=== PATIENT | male | born 1990 | race Caucasian/White ===

== ENCOUNTER 2023-05-11 18:51 | Observation (INO) | payer SELFPAY ==
[2023-05-11] VITALS (21 sets, daily range): BP systolic 121–158; BP diastolic 69–113; PULSE 93–114; RESP 17–20; TEMP 36.7; O2SAT 97–100
--- NOTE | ~2023-05-11 | CT_ITS ---
Non-contrast Head CT History: Seizure Technique: Axial non-contrast imaging of the brain was performed. Dose reduction technique was used on this scan by utilizing automated exposure control and iterative reconstruction technique. The dose -length product (DLP) was 681.00 mGy-cm. Findings: There is no evidence of intracranial hemorrhage, mass lesion, or acute infarct. Brain par enchyma appears normal. The ventricles and subarachnoid spaces are normal in size. The calvarium ap pears normal. The visualized paranasal sinuses and mastoid air cells are clear. Impression: No significant abnormality seen. Reviewed, dictated and finalized at location . ECT ADMINISTRATIVE ASSISTANT Impression: No significant abnormality seen.
--- NOTE | ~2023-05-11 | XR_ITS ---
Portable chest x-ray Comparison: None Clinical History: Seizure Findings: Lungs are clear, without focal consolidation or pleural effusion. Cardiomediastinal silho uette is unremarkable. Bones and soft tissues are unremarkable. Impression: Normal chest. Reviewed, dictated and finalized at location . TICS AND COMPOSITES INSPECTOR Impression: Normal chest.
--- NOTE | 2023-05-11 19:01 | ECG_ITS ---
Measurements Intervals [place] Rate: 97 P: 30 WV: 138 QRS: 49 QRSD: 89 T: 7 QT: 360 QTc: 457 Interpretive Statements SINUS RHYTHM NONSPECIFIC T-WAVE ABNORMALITY ABNORMAL ECG NO PREVIOUS ECG AVAILABLE FOR COMPARISON Electronically Signed On 05-12-2023 8:39:13 ENGINEER PROCESS by Dain Melchor M.D.
--- NOTE | 2023-05-11 19:30 | ED.GENADULT ---
HPI - General Adult General Chief complaint: Seizure Stated complaint: possible seizure Time Seen by Provider: 05/11/23 18:54 History of Present Illness HPI narrative: This is a 32-year-old male with history alcohol abuse presenting for possible seizure. Patient was drinking throughout the day for the [employer]. He had an episode where he became stiff and convulsed and fell to the floor. At that time his glasses cut his face. He had generalized tonic/clonic movements for about 40 seconds. He then had a post-ictal period of about 15 minutes. no history of seizures. No urinary incontinence or tongue biting. Patient is a daily drinker and has been trying to cut back. Additionally he has had a viral illness over the last 4-5 days and has not been drinking as much. Related Data Allergies Allergy/AdvReac Type Severity Reaction Status Date / Time No Known Allergies Allergy Verified 05/11/23 19:02 [facility] Past Medical History Medical History ETOH abuse Exam Narrative: APPEARANCE: No apparent distress. Head: 1 cm vertical laceration medial to the left eyebrow. superficial a cm lac below the left eye. EYES: EOMI, NOSE: Atraumatic NECK: Trachea midline RESPIRATORY: No increased rate of breathing CARDIOVASCULAR: RRR, ABDOMINAL: Non-distended MUSCULOSKELETAl: No obvious deformities NEURO: Alert. Cranial nerves 2-12 grossly intact. Sensation light touch, motor function cerebellar function intact for 4 extremities. tremulous SKIN:: Warm, dry. Normal color PSYCHIATRIC: Normal affect Course Vital Signs Vital signs: Vital Signs Temperature 98.1 F 05/11/23 18:50 Pulse Rate 105 H 05/11/23 18:50 Respiratory Rate 20 05/11/23 18:50 Blood Pressure 158/90 H 05/11/23 18:50 Pulse Oximetry 99 05/11/23 18:50 Oxygen Delivery Room Air 05/11/23 18:50 Temperature 98.1 F 05/11/23 18:50 Pulse Rate 101 H 05/11/23 20:34 Respiratory Rate 20 05/11/23 20:34 Blood Pressure 152/113 H 05/11/23 20:34 Pulse Oximetry 97 05/11/23 20:34 Oxygen Delivery Room Air 05/11/23 18:59 Procedures Laceration Laceration 1: Date: 05/11/23 Site: face Side (If applicable): left Size (cm): 1.0 Description: linear Depth: simple, single layer Local Anesthetic: lidocaine 1% Pre-repair: wound explored and irrigated extensively ====== Skin Level ====== Skin layer closed with: prolene Size (cm): 5-0 Number of sutures: 4 ====== Subcutaneous Layer ====== ====== Muscle Layer ====== ====== Tendon Layer ====== Laceration 2: Site: face Side (If applicable): left Size (cm): 1.0 Description: linear Depth: simple, single layer Pre-repair: irrigated ====== Skin Level ====== Skin layer closed with: dermabond ====== Subcutaneous Layer ====== ====== Muscle Layer ====== ====== Tendon Layer ====== Medical Decision Making MDM Narrative Medical decision making narrative: -Course:This is a 32-year-old male history of alcohol use disorder presenting for seizure. alcohol level 0. Suspect alcohol withdrawal seizure. Patient was loaded with Librium/Valium. Patient improved but still tachycardic and hypertensive. Patient will be admitted to the hospital for alcohol withdrawal. 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 Liver enzymes elevated and a alcohol abuse pattern. ETOH <10. Chest x-ray unremarkable. CT head negative. Independent EKG interpretation: Rhythm [sinus], Rate [97], [place] -[normal], [place] -[normal], QRS [narrow], QTC [normal], T waves -[negative for concerni
[2023-05-11 19:44] LABS: Basophils Absolute Auto 0.1 K/mm3 (0.0-0.1); Basophils Percent Auto 0.9 % (0.2-1.2); Eosinophils Percent Auto 0.6 % (0-4.4); Hematocrit 41.2 % (42.0-52.0); Immature Granulocyte Absolute 0.08 K/mm3 (0.00-0.031); Immature Granulocyte Percent A 1.2 % (0-0.5); Lymphocytes Absolute Auto 0.46 K/mm3 (0.9-3.2); Lymphocytes Percent Auto 6.9 % (18.3-44.2); Mean Corpuscular Hemoglobin 33.9 pg (26-34); Mean Corpuscular Volume 99.8 fl (80-100); Mean Platelet Volume 9.9 fl (7.4-10.4); Monocytes Absolute Auto 0.4 K/mm3 (0.1-0.6); Monocytes Percent Auto 6.3 % (2.6-8.5); Neutrophils Absolute Auto 5.6 K/mm3 (1.3-6.7); Neutrophils Percent Auto 84.1 % (45.5-73.1); Platelet Count Result 151 k/mm3 (150-375); Red Blood Count 4.13 M/mm3 (4.6-6.20); Red Cell Distribution Width 12.2 % (11.5-14.5); White Blood Count 6.7 K/mm3 (4.5-10.0)
[2023-05-11 19:56] LABS: Prothrombin Time 13.7 Seconds (11.1-14.7)
[2023-05-11 19:57] LABS: Partial Thromboplastin Time 27.4 SECONDS (22.3-36.8)
[2023-05-11 19:58] LABS: Ethanol < 10 mg/dL (<10)
[2023-05-11] MEDS: TETANUS,DIPHTHERIA,AC PERTUSSIS ADULT (0.5 ML) BOOSTRIX IM (20:04)
[2023-05-11] MEDS: ONDANSETRON INJ 4 MG/2 ML VIAL IV PUSH ×2 (20:04→21:28)
[2023-05-11] MEDS: SODIUM CHLORIDE 0.9% IV 2,000 ML 999 ML IV CONT (20:05)
[2023-05-11] MEDS: chlordiazePOXIDE (*CRX) 25 MG CAPSULE PO (20:05)
[2023-05-11 20:06] LABS: Alanine Aminotransferase 152 U/L (6-50); Albumin Level 4.8 g/dL (3.5-5.1); Alkaline Phosphatase 176 U/L (38-126); Anion Gap 11 mmol/L (8-16); Aspartate Amino Transferase 477 U/L (17-59); Bilirubin,Total 2.2 mg/dL (0.2-1.3); Blood Urea Nitrogen 6 mg/dL (9-20); Calcium 10.4 mg/dL (8.4-10.2); Carbon Dioxide 28 mmol/L (22-30); Chloride 94 mmol/L (98-107); Creatine Kinase 216 U/L (55-170); Estimated CRCL calculation 128 ml/min; Estimated Glomerular Filt Rate > 60; Glucose 111 mg/dL (65-110); Lipase 193 U/L (23-300); Magnesium 1.7 mg/dL (1.6-2.3); Potassium 3.6 mmol/L (3.4-5.0); Sodium 133 mmol/L (137-145)
[2023-05-11] MEDS: THIAMINE 500 MG/NS 100 ML 500 MG/100 ML BAG 200 MG IVPB (20:06)
[2023-05-11] MEDS: LIDOCAINE HCL 1% LOCAL INJ 10 ML VIAL INFILTRATE (20:11)
[2023-05-11] MEDS: diazePAM INJ (*CRX) 10 MG/2 ML SYRINGE 20 MG IV PUSH (20:23)
--- NOTE | 2023-05-11 21:38 | PM.IMHP ---
H&P: HPI History of Present Illness Date/Time: 05/11/23 21:38 Chief Complaint: seizure Narrative: This is a 32-year-old male with past medical history significant for alcohol dependence, patient drinks in between 10-12 drinks a day patient has decided to quit drinking and has been cutting back on his alcohol intake developed nausea vomiting diarrhea over the last couple of days today while visiting family and friends for a [employer] party had a seizure episode grand mal seizure , trauma to the face with laceration to the forehead,family called EMS and patient was brought to the emergency room. Upon arrival to the emergency room patient was postictal received Librium and Valium. Review of Systems Review of Systems: Patient is laying in a stretcher Constitutional: Constitutional: Denies chills, Denies fatigue, Denies fever(s), Denies lethargy, Denies malaise, Denies poor appetite and Denies weakness Eyes: Eyes: Denies change in vision ENT: Denies dysphagia and Denies odynophagia Cardiovascular: Cardiovascular: Denies chest pain, Denies radiating jaw, neck or arm pain and Denies palpitations Respiratory: Respiratory: Denies chest congestion, Denies dyspnea and Denies wheezing Gastrointestinal: Gastrointestinal: Denies abdominal pain, Denies dyspepsia, Denies heartburn, Reports diarrhea, Reports nausea and Reports vomiting Genitourinary: Genitourinary: Denies dysuria Musculoskeletal: Musculoskeletal: Reports myalgias Integumentary/Breasts: Skin/Breast: Reports wounds ( laceration to the forehead) Neurologic: Denies focal weakness, Reports convulsions and Denies Sensory deficit (Neuro) Psychiatric: Psychiatric: Reports no additional psychiatric complaints and Reports as per HPI Endocrine: Endocrine: Denies cold intolerance, Denies fatigue, Denies flushing, Denies heat intolerance, Denies polyphagia, Denies polydipsia and Denies palpitations Hematologic/Lymphatic: Hematologic/Lymphatic: Reports no additional hematologic/lymphatic complaints and Reports as per HPI Allergic/Immunologic: Allergic/Immunologic: Reports no additional allergic/immunologic complaints and Reports as per HPI PMFSH Past Medical History Medical History ETOH abuse Meds Home Medications and Allergies Allergies Allergy/AdvReac Type Severity Reaction Status Date / Time No Known Allergies Allergy Verified 05/11/23 19:02 Vital Signs Vital Signs - 24 hr 05/11/23 18:50 05/11/23 18:59 05/11/23 18:59 Temperature 98.1 F Pulse Rate 105 H 104 H Respiratory Rate 20 Blood Pressure 158/90 H Pulse Oximetry 99 99 Oxygen Delivery Room Air Room Air 05/11/23 18:59 05/11/23 20:34 Temperature Pulse Rate 101 H Respiratory Rate 20 Blood Pressure 152/113 H Pulse Oximetry 99 97 Oxygen Delivery Room Air Exam Narrative: patient is laying in a stretcher Const: General: comfortable, no acute distress, well developed, alert, awake and average body habitus Nutritional Appearance: average body habitus Orientation/consciousness: patient oriented x3 Other: well-appearing HENMT: Head: normal to inspection, normocephalic and atraumatic Ears: hearing grossly normal bilaterally Face/Nose/Sinus: normal facial exam Face and sinus: normal facial exam Face images: 1. laceration sutures in place Other: laceration wound to the forehead Eyes: General: appearance normal, both eyes and all related structures Pupils: Equal, round and reactive pupils present EOM: EOMs intact bilaterally Neck: Neck: full ROM, no lymphadenopathy and no JVD Thyroid: thyroid normal Lymphatic: no lymphadenopathy noted Resp: Effort & Inspection: normal respiratory effort and able to speak in complete sentences Auscultation: clear to auscultation bilaterally Cardio: Jugular venous distension: no JVD Rate: regular rate Rhythm: regular rhythm Heart sounds: S1 normal heart sound present and S2 normal heart sound presen
[2023-05-11 22:03] LABS: Influenza A QL RT-PCR Negative (Negative); Influenza B QL RT-PCR Negative (Negative); RSV RNA, RT-PCR Negative (Negative); SARS-CoV-2 RNA PCR Negative (Negative)
[2023-05-11] MEDS: DEXTROSE 5%/0.9% SOD CHL 1,000 ML 125 ML IV CONT (22:50)
[2023-05-11] MEDS: LORazepam INJ (*CRX) 2 MG/ML VIAL IV PUSH (22:50)
[2023-05-11] MEDS: PANTOPRAZOLE SODIUM IV 40 MG VIAL IV PUSH (22:50)
[2023-05-12] VITALS (36 sets, daily range): BP systolic 104–144; BP diastolic 64–95; PULSE 69–112; RESP 15–25; TEMP 36.6–37.2; O2SAT 95–100; BMI 21.8
[2023-05-12 03:32] LABS: Glucose Point of Care 122 mg/dl (65-105)
[2023-05-12] MEDS: chlordiazePOXIDE (*CRX) 25 MG CAPSULE 50 MG PO ×2 (06:11→11:57)
[2023-05-12 06:45] LABS: Appearance Urine Clear (Clear); Bilirubin Urine Negative (Negative); Blood Urine Negative (Negative); Color Urine Orange (Yellow); Glucose Urine UA Negative (Negative); Ketones Urine 1+ mg/dL (Negative); Leukocyte Esterase Ur Negative LEU/UL (Negative); Nitrate Urine Negative (Negative); Protein Urine Negative (Negative); Specific Grav Ur 1.013 (1.001-1.035); pH Urine 5.5 (5.0-9.0)
[2023-05-12 06:54] LABS: Add Urine Microscopic? YES
[2023-05-12 07:00] LABS: Amphetamine Screen Urine Negative (Negative); Barbiturate Screen Urine Negative (Negative); Benzodiazepines Screen Urine Positive (Negative); Cannabinoid Screen Urine Negative (Negative); Cocaine Screen Urine Negative (Negative); Methadone Screen Urine Negative (Negative); Opiate Screen Urine Negative (Negative); Phencyclidine Screen Urine Negative (Negative)
--- NOTE | 2023-05-12 07:47 | PC.NURSE ---
Breakfast tray ordered
[2023-05-12] MEDS: ONDANSETRON INJ 4 MG/2 ML VIAL IV PUSH (08:03)
[2023-05-12] MEDS: THIAMINE HCL 200 MG/2 ML VIAL 100 MG IV PUSH (09:09)
[2023-05-12] MEDS: LIDOCAINE 5% PATCH 1 PATCH TRANSDERM (10:32)
[2023-05-12] MEDS: DEXTROSE 5%/0.9% SOD CHL 1,000 ML 125 ML IV CONT (14:47)
--- NOTE | 2023-05-12 15:02 | PM.IMPN ---
Progress Note: A&P Assessment and Plan (1) Alcohol withdrawal: Code(s): F10.939 - Alcohol use, unspecified with withdrawal, unspecified Status: Acute Assessment and Plan: admit to med tele CIWA protocol in progress banana bag Continue telemetry monitoring CWIA protocol in place continues Repeat labs in am Ativan 1mg PO q8hr (2) ETOH abuse: Code(s): F10.10 - Alcohol abuse, uncomplicated Status: Acute Assessment and Plan: care coordination consult for referral to 12 step program Patient and SO/girlfriend state want to decrease use to prevent any further issues (3) Seizure: Code(s): R56.9 - Unspecified convulsions Status: Acute Assessment and Plan: likely secondary to 1. Seizure precautions Maintain seizure precautions Continue neuro checks (4) Hypertension: Qualifiers: Hypertension type: unspecified Qualified Code(s): I10 - Essential (primary) hypertension Code(s): I10 - Essential (primary) hypertension Status: Acute Assessment and Plan: Likely due to withdrawal process Continue to monitor BP Hydralazine 20mg IVP qhr PRN for SBP >160 (5) Back pain: Qualifiers: Back pain location: back pain in unspecified location Chronicity: acute Back pain laterality: unspecified Qualified Code(s): M54.9 - Dorsalgia, unspecified Code(s): M54.9 - Dorsalgia, unspecified Status: Acute Assessment and Plan: Back pain Potentially due to fall with seizure Lidocaine patch ordered Continue to monitor Time Spent With Patient Time with patient: 15 - 25 minutes Subjective Date/time seen: 05/12/23 0845 Interval history: 32 year old male patient examined at bedside in interval assessment as he presented to ED after seizure activity contributed to alcohol withdrawal. Patient and significant other/ girl friend at bedside. Patient expressed he has been trying to reduce his alcohol consumption recently. His normal habits consist of 8-12 drinks/ day. However, yesterday at a [employer] party he had several drinks, last drink about 5pm. According to girlfriend, about 20 minutes after drink patient exhibited seizure activity with big jerking motions for 40 seconds total. Patient stated he remembers falling. When he woke up about 15 minutes later, he was really tired. He noted he hit his face on the couch, abrasions are noted to nasal bridge to left eye, at time of assessment. He expressed that he has no other pain but back tenderness from the current bed. No seizure hx. Significant ED labs include: WBC 6.7. Liver enzymes elevated Bilirubin 2.2, AST 477, ALT 152, ALK Phos 176, Creatinine Kinase 216 consistent with alcohol abuse pattern. ETOH <10. Chest x-ray unremarkable. CT head negative. Will maintain CWIA protocol. Maintain seizure precautions and monitor. Review of Systems Review of Systems: All systems reviewed & are unremarkable except as noted in HPI and below Exam Narrative: APPEARANCE:Alert, well-nourished male, No apparent distress. Head: ? normocephalic- laceration nasal bridge medial to the left eyebrow and below the left eye. EYES:? EOMI, NECK: Trachea midline, Supple, FROM RESPIRATORY: No increased rate of breathing, LCTAB, non-labored CARDIOVASCULAR: RRR, ABDOMINAL: Non-distended, non-tender, BS active MUSCULOSKELETAl: No obvious deformities, FROM, moves all extremites, no edema NEURO: Alert.? Cranial nerves 2-12 grossly intact, normal speech, SKIN:: Warm, dry. Normal color PSYCHIATRIC: Normal affect, coperative Objective Data Vital Signs Vital Signs: Vital Signs - 24 hr 05/11/23 18:50 05/11/23 18:59 05/11/23 18:59 Temperature 98.1 F Pulse Rate 105 H 104 H Respiratory Rate 20 Blood Pressure 158/90 H Pulse Oximetry 99 99 Oxygen Delivery Room Air Room Air 05/11/23 18:59 05/11/23 20:34 05/11/23 20:35 Temperature Pulse Rate 101 H 99 Respiratory
--- NOTE | 2023-05-12 15:22 | ADMGEN ---
This patient, Yocasta Ferrara, was admitted to Medical Room 260-01 at 1300. Patient/family oriented to hospital policies and general routines including ID bracelet, bed and alarms, visiting hours, pain management, procedures, bathroom and other care routines, personal items, smoking policy, room service/diet, and visiting hours. Information on how to activate the Rapid Response Team has been discussed. Patient/Family are encouraged to report perceived risks to care and to ask questions if they do not understand what they are told or what they should do.
[2023-05-12] MEDS: ACETAMINOPHEN 325 MG TABLET 650 MG PO ×2 (17:22→23:47)
[2023-05-12 19:34] LABS: Glucose Point of Care 132 mg/dl (65-105)
[2023-05-12] MEDS: LORazepam (*CRX) 1 MG TABLET PO (20:02)
[2023-05-12] MEDS: NEOMYCIN/POLYMYXIN/BACITRACIN OINTMENT 15 GM TUBE 1 APPLIC TOPICAL (21:39)
[2023-05-13] VITALS: PULSE 78
[2023-05-13] MEDS: LORazepam (*CRX) 1 MG TABLET PO ×2 (03:33→12:54)
[2023-05-13 04:00] VITALS: PULSE 65
[2023-05-13 04:56] VITALS: BP 119/77; PULSE 61; RESP 18; TEMP 36.8; O2SAT 96
[2023-05-13 06:26] LABS: Hematocrit 38.7 % (42.0-52.0); Hemoglobin 12.7 g/dL (14.0-18.0); Immature Platelet Fraction Pct 6.7 % (0.9-11.2); Mean Corpuscular HGB Conc 32.8 g/dl (32-36); Mean Corpuscular Hemoglobin 34.3 pg (26-34); Mean Corpuscular Volume 104.6 fl (80-100); Mean Platelet Volume 10.4 fl (7.4-10.4); Platelet Count Result 131 k/mm3 (150-375); Red Cell Distribution Width 12.1 % (11.5-14.5); White Blood Count 5.2 K/mm3 (4.5-10.0)
[2023-05-13 06:38] LABS: Alanine Aminotransferase 106 U/L (6-50); Albumin Level 3.9 g/dL (3.5-5.1); Alkaline Phosphatase 122 U/L (38-126); Anion Gap 7 mmol/L (8-16); Aspartate Amino Transferase 240 U/L (17-59); Bilirubin,Total 2.4 mg/dL (0.2-1.3); Blood Urea Nitrogen 5 mg/dL (9-20); Carbon Dioxide 26 mmol/L (22-30); Chloride 104 mmol/L (98-107); Estimated CRCL calculation 144 ml/min; Estimated Glomerular Filt Rate > 60; Glucose 95 mg/dL (65-110); Lipase 155 U/L (23-300); Potassium 3.2 mmol/L (3.4-5.0); Sodium 137 mmol/L (137-145)
[2023-05-13] MEDS: POTASSIUM CHLORIDE 20 MEQ ER TABLET 40 MEQ PO (08:50)
[2023-05-13] MEDS: THIAMINE HCL 200 MG/2 ML VIAL 100 MG IV PUSH (08:51)
[2023-05-13] MEDS: NEOMYCIN/POLYMYXIN/BACITRACIN OINTMENT 15 GM TUBE 1 APPLIC TOPICAL (08:52)
[2023-05-13] MEDS: SODIUM CHLORIDE 0.9% IV 1,000 ML 100 ML IV CONT (08:53)
[2023-05-13 09:06] LABS: Magnesium 2.1 mg/dL (1.6-2.3)
--- NOTE | 2023-05-13 11:26 | P.DS_ITS ---
DS: Admitting Diagnosis Discharge Date 05/13/23 Admitting Diagnosis ETOH Withdrawal, Seizure DS: Discharge Diagnosis Discharge Diagnosis (1) Alcohol withdrawal: Code(s): F10.939 - Alcohol use, unspecified with withdrawal, unspecified Status: Acute Assessment and Plan: admit to med tele CIWA protocol in progress banana bag * Continue telemetry monitoring * CIWA protocol in place continues * Repeat labs in am * Ativan 1mg PO q8hr 05/13: Vitals this am BP 119/77, HR 61, Rep 18, O2 96% Temp 98.2 * CIWA score:0 * Repeat labs show improvement:WBC 5.2. Bilirubin 2.4, AST 240, ALT 106, ALK Phos 122. * PO and IV hydration provided * ETOH level <10 * Patient appetite appropriate and tolerating diet without issue * Discharge with Thiamine, Folic Acid and Multivitamin (2) ETOH abuse: Code(s): F10.10 - Alcohol abuse, uncomplicated Status: Acute Assessment and Plan: care coordination consult for referral to 12 step program * Patient and SO/girlfriend state want to decrease use to prevent any further issues * 05/13: Care Coordination have provided resources for rehabilitation and support groups. * Patient expresses he continues to want to stop drinking. (3) Seizure: Code(s): R56.9 - Unspecified convulsions Status: Acute Assessment and Plan: likely secondary to #1. Seizure precautions * Maintain seizure precautions * Continue neuro checks * 05/13 No further seizure activity during hospital course. * Vitals stable (4) Hypertension: Qualifiers: Hypertension type: unspecified Qualified Code(s): I10 - Essential (primary) hypertension Code(s): I10 - Essential (primary) hypertension Status: Acute Assessment and Plan: * Likely due to withdrawal process * Continue to monitor BP * Hydralazine 20mg IVP qhr PRN for SBP >160 * 05/13: BP 119/77. * Educated of healthy lifestyle choices at discharge. * F/U with PCP for monitoring (5) Back pain: Qualifiers: Back pain location: back pain in unspecified location Chronicity: acute Back pain laterality: unspecified Qualified Code(s): M54.9 - Dorsalgia, unspecified Code(s): M54.9 - Dorsalgia, unspecified Status: Acute Assessment and Plan: * Back pain * Potentially due to fall with seizure * Lidocaine patch ordered * Continue to monitor * 05/13: No further complaints of pain at time of assesment. (6) Laceration: Status: Acute Assessment and Plan: * Laceration to nasal bridge to left eye * Sutured in ED * No concern of infection at time of assessment * Maintain clean site. DS: Summary Hospital Course Reason for hospitalization: ETOH Withdrawl, Seizure Hospital Course: 32 year old male patient examined at bedside in interval assessment as he presented to ED after seizure activity contributed to alcohol withdrawal. Patient and significant other/ girl friend at bedside. Patient? expressed he has been trying to reduce his alcohol consumption recently. His normal habits consist of 8-12 drinks/ day. However, yesterday at a [employer] he had several drinks, last drink about 5pm. According to girlfriend, about 20 minutes after drink patient exhibited seizure activity with big jerking motions for 40 seconds total. Patient stated he remembers falling. When he woke up about 15 minutes later,? he was really tired. He noted he hit his face on the couch, abrasions are noted to nasal bridge to left eye, at time of assessment. He expressed t
--- NOTE | 2023-05-13 11:26 | PM.DS ---
DS: Admitting Diagnosis Discharge Date 05/13/23 Admitting Diagnosis ETOH Withdrawal, Seizure DS: Discharge Diagnosis Discharge Diagnosis (1) Alcohol withdrawal: Code(s): F10.939 - Alcohol use, unspecified with withdrawal, unspecified Status: Acute Assessment and Plan: admit to med tele CIWA protocol in progress banana bag Continue telemetry monitoring CIWA protocol in place continues Repeat labs in am Ativan 1mg PO q8hr 05/13: Vitals this am BP 119/77, HR 61, Rep 18, O2 96% Temp 98.2 CIWA score:0 Repeat labs show improvement:WBC 5.2. Bilirubin 2.4, AST 240, ALT 106, ALK Phos 122. PO and IV hydration provided ETOH level <10 Patient appetite appropriate and tolerating diet without issue Discharge with Thiamine, Folic Acid and Multivitamin (2) ETOH abuse: Code(s): F10.10 - Alcohol abuse, uncomplicated Status: Acute Assessment and Plan: care coordination consult for referral to 12 step program Patient and SO/girlfriend state want to decrease use to prevent any further issues 05/13: Care Coordination have provided resources for rehabilitation and support groups. Patient expresses he continues to want to stop drinking. (3) Seizure: Code(s): R56.9 - Unspecified convulsions Status: Acute Assessment and Plan: likely secondary to #1. Seizure precautions Maintain seizure precautions Continue neuro checks 05/13 No further seizure activity during hospital course. Vitals stable (4) Hypertension: Qualifiers: Hypertension type: unspecified Qualified Code(s): I10 - Essential (primary) hypertension Code(s): I10 - Essential (primary) hypertension Status: Acute Assessment and Plan: Likely due to withdrawal process Continue to monitor BP Hydralazine 20mg IVP qhr PRN for SBP >160 05/13: BP 119/77. Educated of healthy lifestyle choices at discharge. F/U with PCP for monitoring (5) Back pain: Qualifiers: Back pain location: back pain in unspecified location Chronicity: acute Back pain laterality: unspecified Qualified Code(s): M54.9 - Dorsalgia, unspecified Code(s): M54.9 - Dorsalgia, unspecified Status: Acute Assessment and Plan: Back pain Potentially due to fall with seizure Lidocaine patch ordered Continue to monitor 05/13: No further complaints of pain at time of assesment. (6) Laceration: Status: Acute Assessment and Plan: Laceration to nasal bridge to left eye Sutured in ED No concern of infection at time of assessment Maintain clean site. DS: Summary Hospital Course Reason for hospitalization: ETOH Withdrawl, Seizure Hospital Course: 32 year old male patient examined at bedside in interval assessment as he presented to ED after seizure activity contributed to alcohol withdrawal. Patient and significant other/ girl friend at bedside. Patient? expressed he has been trying to reduce his alcohol consumption recently. His normal habits consist of 8-12 drinks/ day. However, yesterday at a [employer] he had several drinks, last drink about 5pm. According to girlfriend, about 20 minutes after drink patient exhibited seizure activity with big jerking motions for 40 seconds total. Patient stated he remembers falling. When he woke up about 15 minutes later,? he was really tired. He noted he hit his face on the couch, abrasions are noted to nasal bridge to left eye, at time of assessment. He expressed that he has no other pain but back tenderness from the current bed. No seizure hx. Significant ED labs include: WBC 6.7.? Liver enzymes elevated Bilirubin 2.2, AST 477, ALT 152, ALK Phos 176, Creatinine Kinase 216 consistent with alcohol abuse pattern.? ETOH <10. Chest x-ray unremarkable.? CT head negative. Will maintain CWIA protocol. Maintain seizure precautions and monitor. 05/13: Yocasta is alert and oriented x 4 today. Sitting up in bed. Pleasant
== END 2023-05-13 13:10 | disposition home or self-care (01) ==
LOC: ANHED 21:30 → ANH3MEDSUR 05-12 15:07 → ANH2MED 05-12 20:07 → ANH3MEDSUR 05-13 15:19
PROVIDERS: Nurse Practitioner Family; Admitting Provider Internal Medicine; Emergency Provider Emergency Medicine; Visit Provider Internal Medicine
DX: F10.139 Alcohol abuse with withdrawal, unspecified (principal); Y90.0 Blood alcohol level of less than 20 mg/100 ml; R56.9 Unspecified convulsions; S01.81XA Laceration without foreign body of other part of head, initial encounter; W22.09XA Striking against other stationary object, initial encounter; Z23 Encounter for immunization; I10 Essential (primary) hypertension; R94.31 Abnormal electrocardiogram [ECG] [EKG]; M54.9 Dorsalgia, unspecified; R74.01 Elevation of levels of liver transaminase levels; Z20.822 Contact with and (suspected) exposure to COVID-19
CPT/HCPCS: 11043; 12011; 36415; 70450; 71045; 80053; 80307; 81001; 82248; 82550; 82948; 83690; 83735; 84443; 85025; 85027; 85055; 85610; 85730; 87637; 90471; 90715; 93005; 96365; 96366; 96374; 96375; 96376; 99285; A9270; C9113; G0378; G0379; J2060; J2405; J3360; J3411; J3475; J7030; J7042